=== PATIENT | female | born 1975 | race Hispanic/Latino ===

== ENCOUNTER 2016-04-21 22:12 | Emergency (ER) | payer OTHER ==
--- NOTE | 2016-04-21 22:42 | ERRECORD ---
[facility] EMERGENCY RECORD HPI TOOTHACHE (22:29 [facility]) CHIEF COMPLAINT: Patient presents for evaluation of toothache. HISTORIAN: History provided by patient, 41F presents with complaints of left upper tooth ache. States that she has had pain in the area for months, but it was better after antibiotics in early March. Has not seen a dentist due to only having Medicaid. Reports subjective facial swelling. Denies difficulty swallowing or decreased PO intake, denies fever. LOCATION: Symptoms are localized. TEETH: upper left canine (cuspid) (#11), upper left 1st premolar (bicuspid) (#12), Pain to with palpation percussion. QUALITY: Pain is sharp in nature, radiation to left face. TIME COURSE: Gradual onset of symptoms, Symptoms are worsening. ASSOCIATED WITH: Associated with facial swelling. EXACERBATED BY: Patient's condition exacerbated by chewing. ROS (22:31 [facility]) CONSTITUTIONAL: Negative constitutional review of systems, Historian denies chills, denies fever. ENT: dental pain, facial swelling. CARDIOVASCULAR: Negative cardiovascular review of systems, Historian denies chest pain, denies palpitations. RESPIRATORY: Negative respiratory review of systems, Historian denies cough, denies shortness of breath. GI: Negative gastrointestinal review of systems, Historian denies abdominal pain, denies constipation, denies diarrhea, denies nausea, denies vomiting. GENITOURINARY FEMALE: Negative genitourinary review of systems, Historian denies dysuria, denies frequency. SKIN: Negative skin review of systems, Historian denies rash, denies skin changes. NEUROLOGIC: Negative neurologic review of systems, Historian denies headache. HEMO/LYMPHATIC: Normal hematologic/lymphatic system review, Historian denies abnormal blood clotting. PAST MEDICAL HISTORY (22:22 [facility]) MEDICAL HISTORY: Flu vaccine up to date, Tetanus not up to date, Past medical history includes history of diabetes, Type II, Past medical history includes endocrine disease, hypothyroidism, Past medical history includes history of hyperlipidemia, history of hypertension. FEMALE SURGICAL HISTORY: Surgical history of cholecystectomy. PSYCHIATRIC HISTORY: No previous psychiatric history. SOCIAL HISTORY: Patient denies alcohol use, Patient denies drug use, Patient has no smoking history. &a-1R&a+25V*p+0X*x8042J*c202B*c15G*c2P*p-0X&a-25V&a+1R Name: Rachel Ramirez I : 1975 F41 MedRec: [id number] AcctNum: [id number] Prepared: Katherine Apr 21, 2016 22:45 by Interface Page 1 of 3 pMD [facility] EMERGENCY RECORD KNOWN ALLERGIES No Known Drug Allergies CURRENT MEDICATIONS metformin: Patient Dose: Oral 2 times a day.dose unknown. (22:28 [facility]) cholesterol: name/dose unknown. (22:29 [facility]) unknown insulin at bedtime: Patient Dose: 15 units Subcutaneous.Name of insulin unknown. (22:30 [facility]) thyroid: name unknown. (22:30 [facility]) VITAL SIGNS VITAL SIGNS: BP: 169/91, Pulse: 100, Resp: 18 (Non-Labored), Temp: 98.3 (Oral), Pain: 9, O2 sat: 98 on Room Air, Time: 04/21/2016 22:22. (22:22 [facility]) BP: 169/91, Pulse: 102, Resp: 18, Temp: 98.7, Pain: 7, O2 sat: 99 on RA, Time: 04/21/2016 22:35. (22:35 [facility]) PHYSICAL EXAM CONSTITUTIONAL: Vital signs reviewed, Patient afebrile, Pulse normal, Blood pressure normal, Respiratory rate normal, Patient appears non toxic, Patient appears pain free, Patient alert and oriented to person, place and time. (22:31 [facility]) ENT: Teeth with, dental caries, possible periapical abscess on #11. (22:32 [facility]) NECK: Neck exam normal, Neck exam included findings of normal range of motion, Trachea midline, no meningeal signs, no cervical adenopathy, no tenderness. (22:31 [facility]) RESPIRATORY CHEST: Respiratory and chest exam normal, Respiratory exam included findings of no respiratory distress, Breath sounds clear. (22:31 [facility]) CARDIOVASCULAR: Cardiovascular assessment normal, Cardiovascular exam included findings of heart rate regular rate and rhythm, Heart sounds normal. (22:31 [facility]) ABDOMEN FEMALE: Abdominal exam included findings of abdomen nontender, Bowel sounds normal, no distension, no mass, no pulsatile masses, no peritoneal signs, no rigidity, no guarding, no rebound, Rovsing's sign absent. (22:31 [facility]) BACK: Back exam normal, Back exam included findings of normal inspection, range of motion normal, no tenderness. (22:31 [facility]) NEURO: Neuro exam normal, Neuro exam findings include patient oriented to person, place and time, Speech normal, Gait normal. (22:31 [facility]) SKIN: Skin exam normal, Skin exam included findings of skin warm, dry, and normal in color, no rash. (22:31 [facility]) DOCTOR NOTES (22:32 [facility]) TEXT: Patient presents with findings consistent with &a-1R&a+25V*p+0X*y3330Q*c202B*c15G*c2P*p-0X&a-25V&a+1R Name: Rachel Ramirez I : 1975 F41 MedRec: [id number] AcctNum: [id number] Prepared: [facility] Apr 21, 2016 22:45 by Interface Page 2 of 3 pMD [facility] EMERGENCY RECORD periapical abscess. No signs of drainable abscess. multiple dental caries. No other concerning findings on exam. offered nerve block, which patient refused. Will start antibiotics, and gave a list of dentists that should accept her insurance. PATIENT STATUS: Patient has improved since arrival to emergency department. PATIENT PLAN: The patient will be discharged, The patient will follow up with primary care physician. PROBLEM LIST No recorded problems DIAGNOSIS (22:27 [facility]) FINAL: PRIMARY: Dental caries, ADDITIONAL: PERIAPICAL ABSCESS WITHOUT SINUS. PRESCRIPTION (22:27 [facility]) Pen-Vee K: TABLET : 500 mg : ORAL : Quantity: 1 Unit: tab(s) Route: ORAL Schedule: 4 times a day Dispense: 40 May substitute. Refills: No Refills . NOTES: No refills. DISPOSITION PATIENT: Disposition Type: Discharge, Disposition: *Discharge Home. (22:27 [facility]) Patient left the department. (22:41 [facility]) [place]: CHOB=VISHAL Schneider, Gissel BEASLEYC=MD Andrews Jason [facility]=VISHAL Garza, Lillie &a-1R&a+25V*p+0X*w5721J*c202B*c15G*c2P*p-0X&a-25V&a+1R Name: Rachel Ramirez I : 1975 F41 MedRec: [id number] AcctNum: [id number] Prepared: Katherine Apr 21, 2016 22:45 by Interface Page 3 of 3 pMD MTDD
--- NOTE | 2016-04-21 22:47 | PICIS ---
[facility] EMERGENCY RECORD TRIAGE (22:21 [facility]) PATIENT: NAME: Rachel Ramirez I, AGE: 41, GENDER: female, : Mon1975, TIME OF GREET: MonApr 21, 2016 22:13, PREFERRED LANGUAGE: Malaysian, ECODE BILLING MAP: [facility], Zip Code: [address], KG WEIGHT: 67.13, PHONE: , , , PERSON ID: [id number], PAYMENT: Unknown, PCP: DO BROWN KRISTEL. (22:21 [facility]) TRIAGE NOTES: Toothache X2 months. Put on abx last week but ran out. Pain getting worse per patient. (22:21 [facility]) COMPLAINT: Toothache. (22:21 [facility]) ADMISSION: URGENCY: 5 Fast [address], ADMISSION SOURCE: Home, TRANSPORT: Walk-in, BED: TRIAGE. (22:21 [facility]) TRIAGE SCREENING: Patient denies suicidal ideation, Patient denies presence of domestic violence. (22:22 [facility]) PROVIDERS: TRIAGE NURSE: Lillie Garza RN. (22:21 [facility]) VITAL SIGNS: BP 169/91, Pulse 100, Resp 18, (Non-Labored), Temp 98.3, (Oral), Pain 9, O2 Sat 98, on Room Air, Time 04/21/2016 22:22. (22:22 [facility]) KNOWN ALLERGIES No Known Drug Allergies CURRENT MEDICATIONS metformin: Patient Dose: Oral 2 times a day.dose unknown. (22:28 [facility]) cholesterol: name/dose unknown. (22:29 [facility]) unknown insulin at bedtime: Patient Dose: 15 units Subcutaneous.Name of insulin unknown. (22:30 [facility]) thyroid: name unknown. (22:30 [facility]) VITAL SIGNS VITAL SIGNS: BP: 169/91, Pulse: 100, Resp: 18 (Non-Labored), Temp: 98.3 (Oral), Pain: 9, O2 sat: 98 on Room Air, Time: 04/21/2016 22:22. (22:22 [facility]) BP: 169/91, Pulse: 102, Resp: 18, Temp: 98.7, Pain: 7, O2 sat: 99 on RA, Time: 04/21/2016 22:35. (22:35 [facility]) NURSING ASSESSMENT: DENTAL (22:31 [facility]) CONSTITUTIONAL: Complex assessment performed, Patient arrives ambulatory, Gait steady, History obtained from patient, Patient appears comfortable, Patient cooperative, Patient alert, Oriented to person, place and time, Skin warm, Skin dry, Skin normal in color, Mucous membranes pink, Mucous membranes moist, Patient is well-groomed, Patient complains of tooth pain. PAIN: aching pain, left upper front tooth, Onset of pain 02/19/2016 22:31, constant, Pain exacerbated by nothing, Nothing has been tried to alleviate the pain. DENTAL: Dental assessment findings include mouth normal, Teeth abnormal:, gums tender, no associated &a-1R&a+25V*p+0X*g5004W*c202B*c15G*c2P*p-0X&a-25V&a+1R Name: Rachel Ramirez I : 1975 F41 MedRec: [id number] AcctNum: [id number] Prepared: [facility] Apr 21, 2016 22:52 by Interface Page 1 of 4 pMD [facility] EMERGENCY RECORD malocclusion of jaw, no associated bleeding, no associated swelling, Notes: pt states she has not seen a dentist. pt educated on need to schedule appointment uri with pt verbal understanding. community dentist list provided to pt. SAFETY: Side rails up, Cart/Stretcher in lowest position, Call light within reach, Hospital ID band on. NURSING PROCEDURE: DISCHARGE NOTE (22:35 [facility]) DISCHARGE: Patient discharged to home, ambulating without assistance, driving self, unaccompanied, Patient requested and was provided an electronic copy of Discharge Instructions, Discharge instructions given to patient, Simple or moderate discharge teaching performed, by VISHAL OLIVO, Prescriptions given and instructions on side effects given, Name of prescription(s) given: [id number], Above person(s) verbalized understanding of discharge instructions and follow-up care. BELONGINGS: Belongings and valuables with patient at time of discharge include:, Belongings remain with patient. SAFETY: Side rails up, Cart/Stretcher in lowest position, Call light within reach, Hospital ID band on. VITAL SIGNS: BP: 169, / 91, Pulse: 102, Resp: 18, Temp: 98.7, Pain: 7, O2 sat: 99, on: RA. HPI TOOTHACHE (22:29 [facility]) CHIEF COMPLAINT: Patient presents for evaluation of toothache. HISTORIAN: History provided by patient, 41F presents with complaints of left upper tooth ache. States that she has had pain in the area for months, but it was better after antibiotics in early March. Has not seen a dentist due to only having Medicaid. Reports subjective facial swelling. Denies difficulty swallowing or decreased PO intake, denies fever. LOCATION: Symptoms are localized. TEETH: upper left canine (cuspid) (#11), upper left 1st premolar (bicuspid) (#12), Pain to with palpation percussion. QUALITY: Pain is sharp in nature, radiation to left face. TIME COURSE: Gradual onset of symptoms, Symptoms are worsening. ASSOCIATED WITH: Associated with facial swelling. EXACERBATED BY: Patient's condition exacerbated by chewing. ROS (22:31 [facility]) CONSTITUTIONAL: Negative constitutional review of systems, Historian denies chills, denies fever. ENT: dental pain, facial swelling. CARDIOVASCULAR: Negative cardiovascular review of systems, Historian denies chest pain, denies palpitations. RESPIRATORY: Negative respiratory review of systems, Historian denies cough, denies shortness of breath. GI: Negative gastrointestinal review of systems, Historian denies &a-1R&a+25V*p+0X*e2049D*c202B*c15G*c2P*p-0X&a-25V&a+1R Name: Rachel Ramirez I : 1975 F41 MedRec: [id number] AcctNum: [id number] Prepared: Katherine Apr 21, 2016 22:52 by Interface Page 2 of 4 pMD [facility] EMERGENCY RECORD abdominal pain, denies constipation, denies diarrhea, denies nausea, denies vomiting. GENITOURINARY FEMALE: Negative genitourinary review of systems, Historian denies dysuria, denies frequency. SKIN: Negative skin review of systems, Historian denies rash, denies skin changes. NEUROLOGIC: Negative neurologic review of systems, Historian denies headache. HEMO/LYMPHATIC: Normal hematologic/lymphatic system review, Historian denies abnormal blood clotting. PAST MEDICAL HISTORY (22:22 [facility]) MEDICAL HISTORY: Flu vaccine up to date, Tetanus not up to date, Past medical history includes history of diabetes, Type II, Past medical history includes endocrine disease, hypothyroidism, Past medical history includes history of hyperlipidemia, history of hypertension. FEMALE SURGICAL HISTORY: Surgical history of cholecystectomy. PSYCHIATRIC HISTORY: No previous psychiatric history. SOCIAL HISTORY: Patient denies alcohol use, Patient denies drug use, Patient has no smoking history. PHYSICAL EXAM CONSTITUTIONAL: Vital signs reviewed, Patient afebrile, Pulse normal, Blood pressure normal, Respiratory rate normal, Patient appears non toxic, Patient appears pain free, Patient alert and oriented to person, place and time. (22:31 [facility]) ENT: Teeth with, dental caries, possible periapical abscess on #11. (22:32 [facility]) NECK: Neck exam normal, Neck exam included findings of normal range of motion, Trachea midline, no meningeal signs, no cervical adenopathy, no tenderness. (22:31 [facility]) RESPIRATORY CHEST: Respiratory and chest exam normal, Respiratory exam included findings of no respiratory distress, Breath sounds clear. (22:31 [facility]) CARDIOVASCULAR: Cardiovascular assessment normal, Cardiovascular exam included findings of heart rate regular rate and rhythm, Heart sounds normal. (22:31 [facility]) ABDOMEN FEMALE: Abdominal exam included findings of abdomen nontender, Bowel sounds normal, no distension, no mass, no pulsatile masses, no peritoneal signs, no rigidity, no guarding, no rebound, Rovsing's sign absent. (22:31 [facility]) BACK: Back exam normal, Back exam included findings of normal inspection, range of motion normal, no tenderness. (22:31 [facility]) NEURO: Neuro exam normal, Neuro exam findings include patient oriented to person, place and time, Speech normal, Gait normal. (22:31 [facility]) SKIN: Skin exam normal, Skin exam included findings of skin warm, &a-1R&a+25V*p+0X*n4684R*c202B*c15G*c2P*p-0X&a-25V&a+1R Name: Rachel Ramirez I : 1975 F41 MedRec: [id number] AcctNum: [id number] Prepared: MonApr 21, 2016 22:52 by Interface Page 3 of 4 pMD [facility] EMERGENCY RECORD dry, and normal in color, no rash. (22:31 [facility]) EVENTS TRANSFER: Triage to Emergency Triage. (MonApr 21, 2016 22:21 [facility]) Emergency Triage to Emergency Room -02. (22:22 [facility]) Removed from Emergency Emergency Room -02. (22:41 [facility]) DOCTOR NOTES (22:32 [facility]) TEXT: Patient presents with findings consistent with periapical abscess. No signs of drainable abscess. multiple dental caries. No other concerning findings on exam. offered nerve block, which patient refused. Will start antibiotics, and gave a list of dentists that should accept her insurance. PATIENT STATUS: Patient has improved since arrival to emergency department. PATIENT PLAN: The patient will be discharged, The patient will follow up with primary care physician. PROBLEM LIST No recorded problems DIAGNOSIS (22:27 [facility]) FINAL: PRIMARY: Dental caries, ADDITIONAL: PERIAPICAL ABSCESS WITHOUT SINUS. DISPOSITION PATIENT: Disposition Type: Discharge, Disposition: *Discharge Home. (22:27 [facility]) Patient left the department. (22:41 [facility]) INSTRUCTION (22:28 [facility]) DISCHARGE: ABSCESS DENTAL. FOLLOWUP: DO BROWN KRISTEL, [facility], [address] [place] [id number], [phone]. SPECIAL: Start antibiotics. Call a dentist as soon as possible. Ibuprofen for pain. PRESCRIPTION (22:27 [facility]) Pen-Vee K: TABLET : 500 mg : ORAL : Quantity: 1 Unit: tab(s) Route: ORAL Schedule: 4 times a day Dispense: 40 May substitute. Refills: No Refills . NOTES: No refills. ADMIN (22:35 [facility]) DIGITAL SIGNATURE: MD Andrews Jason. [place]: CHOCasey=VISHAL Schneider, Gissel JJAC=MD Andrews Jason PGRI=VISHAL Garza, Lillie &a-1R&a+25V*p+0X*n2495F*c202B*c15G*c2P*p-0X&a-25V&a+1R Name: Rachel Ramirez I : 1975 F41 MedRec: [id number] AcctNum: [id number] Prepared: Katherine Apr 21, 2016 22:52 by Interface Page 4 of 4 pMD MTDD
== END 2016-04-21 22:35 | disposition home or self-care (01) ==
LOC: BURERS 22:12
DX: K04.7 Periapical abscess without sinus (principal); I10 Essential (primary) hypertension; K02.9 Dental caries, unspecified; E11.9 Type 2 diabetes mellitus without complications; E03.9 Hypothyroidism, unspecified; E78.5 Hyperlipidemia, unspecified; Z79.84 Long term (current) use of oral hypoglycemic drugs
CPT/HCPCS: 99282

== ENCOUNTER 2016-08-17 20:48 | Emergency (ER) | payer OTHER ==
[2016-08-17] MEDS ORDERED: Bicillin LA 1.2 MILLION UNITS/2 ML SYRINGE ONE (21:10)
[2016-08-17] MEDS ORDERED: Acetaminophen/Codeine 30-300mg Tablet ONE (21:13)
== END 2016-08-17 21:57 | disposition home or self-care (01) ==
LOC: BURERS 20:48
DX: K04.7 Periapical abscess without sinus (principal); I10 Essential (primary) hypertension; E11.9 Type 2 diabetes mellitus without complications; E03.9 Hypothyroidism, unspecified; E78.5 Hyperlipidemia, unspecified; F17.210 Nicotine dependence, cigarettes, uncomplicated; Z79.4 Long term (current) use of insulin; Z79.899 Other long term (current) drug therapy
CPT/HCPCS: 96372; J0561

== ENCOUNTER 2017-04-10 04:57 | Emergency (ER) | payer OTHER | END 2017-04-10 06:12 | disposition home or self-care (01) | LOC: BURERS 04:57 | DX: J06.9 Acute upper respiratory infection, unspecified (principal); E11.9 Type 2 diabetes mellitus without complications; I10 Essential (primary) hypertension; E03.9 Hypothyroidism, unspecified; E78.5 Hyperlipidemia, unspecified; F17.210 Nicotine dependence, cigarettes, uncomplicated; Z79.4 Long term (current) use of insulin | CPT/HCPCS: 36416; 87081; 87430; 99283 ==

== ENCOUNTER 2017-06-24 03:21 | Emergency (ER) | payer OTHER ==
[2017-06-24] MEDS ORDERED: Ibuprofen 200 MG TAB ONE (03:39)
== END 2017-06-24 03:45 | disposition home or self-care (01) ==
LOC: BURERS 03:21
DX: G44.209 Tension-type headache, unspecified, not intractable (principal); E11.9 Type 2 diabetes mellitus without complications; I10 Essential (primary) hypertension; E03.9 Hypothyroidism, unspecified; E78.5 Hyperlipidemia, unspecified; F17.210 Nicotine dependence, cigarettes, uncomplicated; Z79.4 Long term (current) use of insulin; Z79.899 Other long term (current) drug therapy
CPT/HCPCS: 99283

== ENCOUNTER 2017-09-29 01:35 | Emergency (ER) | payer OTHER ==
[2017-09-29] MEDS ORDERED: Ondansetron ODT 4 MG TAB ONE (02:17)
[2017-09-29 02:29] LABS: #Basophils 0.2 thou/uL (0.0-0.2); #Eosinphils 0.5 thou/uL (0.0-0.7); #Lymphocytes 4.7 thou/uL (1.20-3.40); #Monocytes 0.7 thou/uL (0.11-0.59); #Neutrophils 7.6 thou/uL (1.40-6.50); %Basophils 1.5 % (0.0-1.0); %Eosinophils 3.7 % (0.0-10.0); %Lymphocytes 34.3 % (21.0-51.0); %Monocytes 5.1 % (0.0-10.0); %Neutrophils 55.5 % (42.0-75.0); Hemoglobin 12.5 g/dL (12.0-16.0); Mean Corpuscular Volume 77.3 fL (78.0-98.0); Mean Platelet Volume 11.1 fL (7.4-10.4); Platelet Count 267 thou/uL (130-400); RBC Distribution Width 13.6 % (11.5-14.5); Red Blood Cell (RBC) Count 4.62 mill/uL (4.20-5.40); White Blood Cell (WBC) Count 13.7 thou/uL (4.8-10.8)
[2017-09-29 02:39] LABS: ALT (SGPT) 22 U/L (8-55); AST (SGOT) 14 U/L (5-34); Albumin 3.7 g/dL (3.5-5.0); Alkaline Phosphatase 116 U/L (40-150); Anion Gap 11 mmol/L (10-20); BUN (Urea Nitrogen) 9 mg/dL (7.0-18.7); Bilirubin, Total 0.5 mg/dL (0.2-1.2); Calc. Creatinine Clearance 0 mL/min (70-130); Calcium 8.6 mg/dL (7.8-10.44); Carbon Dioxide 25 mmol/L (22-29); Chloride 106 mmol/L (98-107); Estimated GFR-MDRD 83; Globulin 3.6 g/dL (2.4-3.5); Glucose 168 mg/dL (70-105); Potassium 3.7 mmol/L (3.5-5.1); Protein, Total 7.3 g/dL (6.0-8.3); Sodium 138 mmol/L (136-145)
[2017-09-29 02:44] LABS: Bilirubin Negative (Negative); Blood, Urine Negative (Negative); Clarity Clear (Clear); Glucose, Urine (Dipstick) Negative (Negative); Leukocyte Trace (Negative); Nitrite Negative (Negative); Protein, Urine (Dipstick) Negative (Neg-Trace); Urobilinogen 0.2 mg/dL (0.2-1.0)
[2017-09-29 02:45] LABS: Bacteria/HPF 1+ HPF (None Seen); RBC/HPF 0-3 HPF (0-3); Squamous Epithelial 0-3 HPF (0-3); Yeast-All Forms 1+ HPF (None Seen)
== END 2017-09-29 02:50 | disposition home or self-care (01) ==
LOC: BURERS 01:35
DX: E86.0 Dehydration (principal); E11.9 Type 2 diabetes mellitus without complications; E03.9 Hypothyroidism, unspecified; I10 Essential (primary) hypertension; E78.5 Hyperlipidemia, unspecified; F17.210 Nicotine dependence, cigarettes, uncomplicated; Z79.4 Long term (current) use of insulin; Z79.899 Other long term (current) drug therapy
CPT/HCPCS: 36416; 80053; 81003; 81015; 85025; 96374; Q0162

== ENCOUNTER 2018-04-12 17:56 | Emergency (ER) | payer OTHER ==
[2018-04-12] MEDS ORDERED: HYDROcodone/Acetaminophen 5/325 mg Tablet ONE (19:20)
[2018-04-12] MEDS ORDERED: AMOXicillin 250 MG CAP ONE (19:20)
== END 2018-04-12 19:24 | disposition home or self-care (01) ==
LOC: BURERS 17:56
DX: K02.9 Dental caries, unspecified (principal); E11.9 Type 2 diabetes mellitus without complications; F17.210 Nicotine dependence, cigarettes, uncomplicated; Z79.4 Long term (current) use of insulin
CPT/HCPCS: 99282

== ENCOUNTER 2018-06-27 11:17 | Emergency (ER) | payer OTHER ==
[2018-06-27 12:26] LABS: #Basophils 0.2 thou/uL (0.0-0.2); #Eosinphils 0.5 thou/uL (0.0-0.7); #Lymphocytes 3.9 thou/uL (1.20-3.40); #Monocytes 0.6 thou/uL (0.11-0.59); #Neutrophils 7.4 thou/uL (1.40-6.50); %Basophils 1.4 % (0.0-1.0); %Lymphocytes 31.3 % (21.0-51.0); %Monocytes 4.6 % (0.0-10.0); %Neutrophils 58.6 % (42.0-75.0); Hemoglobin 11.7 g/dL (12.0-16.0); Mean Corpuscular Hemoglobin 24.5 pg (27.0-31.0); Mean Corpuscular Volume 81.6 fL (78.0-98.0); Mean Platelet Volume 11.2 fL (7.4-10.4); Platelet Count 292 thou/uL (130-400); RBC Distribution Width 15.4 % (11.5-14.5); Red Blood Cell (RBC) Count 4.76 mill/uL (4.20-5.40); White Blood Cell (WBC) Count 12.6 thou/uL (4.8-10.8)
[2018-06-27 12:33] LABS: ALT (SGPT) 22 U/L (8-55); AST (SGOT) 15 U/L (5-34); Albumin 4.4 g/dL (3.5-5.0); Alkaline Phosphatase 147 U/L (40-150); Anion Gap 13 mmol/L (10-20); BUN (Urea Nitrogen) 7 mg/dL (7.0-18.7); Bilirubin, Total 0.8 mg/dL (0.2-1.2); Calc. Creatinine Clearance 0 mL/min (70-130); Carbon Dioxide 24 mmol/L (22-29); Chloride 103 mmol/L (98-107); Estimated GFR-MDRD 72; Globulin 4.1 g/dL (2.4-3.5); Glucose 251 mg/dL (70-105); Potassium 3.9 mmol/L (3.5-5.1); Protein, Total 8.5 g/dL (6.0-8.3); Sodium 136 mmol/L (136-145)
[2018-06-27 12:44] LABS: Anisocytosis SLIGHT = 6-15 cells (100X) (0-5/hpf); MDiff Complete? YES; Platelet Morphology Comment Appears Adequate
[2018-06-27 12:51] LABS: Bilirubin Negative (Negative); Clarity Cloudy (Clear); Glucose, Urine (Dipstick) >=1000 mg/dL (Negative); Leukocyte Small (Negative); Nitrite Positive (Negative); Protein, Urine (Dipstick) Negative (Neg-Trace); Urobilinogen 0.2 mg/dL (0.2-1.0)
[2018-06-27 12:52] LABS: Bacteria/HPF 4+ HPF (None Seen); Blood, Urine Negative (Negative); Crystals/HPF None Seen HPF (Negative); Hyaline Casts/LPF NONE SEEN LPF (0-3 Hyaline); Other Casts/LPF None Seen LPF (0-3 Hyaline); Oval Fat Bodies/HPF None Seen HPF (None Seen); RBC/HPF None Seen HPF (0-3); Renal Epithelial None Seen HPF (0-3); Sperm/HPF None Seen HPF (None Seen); Transitional Epithelial NONE SEEN HPF (0-3); Trichomonas/HPF None Seen HPF (None Seen); Yeast-All Forms None Seen HPF (None Seen)
[2018-06-27] MEDS ORDERED: Sulfameth/Trimethoprim DS 800-160mg TAB ONE (13:04)
--- NOTE | 2018-06-27 18:50 | RAD ---
PORTABLE CHEST: 06/27/18 An AP portable film at 1214 shows a normal sized heart and clear lungs. No infiltrate or effusion was seen. There is no edema or congestion. The mediastinum appears normal. IMPRESSION: No acute thoracic finding. POS: HOME
== END 2018-06-27 13:07 | disposition home or self-care (01) ==
LOC: BURERS 11:17
DX: N30.00 Acute cystitis without hematuria (principal); R60.9 Edema, unspecified; I10 Essential (primary) hypertension; Z91.11 Patient's noncompliance with dietary regimen; E11.9 Type 2 diabetes mellitus without complications; F17.210 Nicotine dependence, cigarettes, uncomplicated; Z79.4 Long term (current) use of insulin
CPT/HCPCS: 36415; 71045; 80053; 81003; 81015; 83880; 84443; 84484; 85025; 93005; 94760

== ENCOUNTER 2018-07-01 21:23 | Emergency (ER) | payer OTHER | END 2018-07-01 21:39 | disposition home or self-care (01) | LOC: BURERS 21:23 | DX: J11.1 Influenza due to unidentified influenza virus with other respiratory manifestations (principal); E11.9 Type 2 diabetes mellitus without complications; Z79.4 Long term (current) use of insulin; I10 Essential (primary) hypertension; F17.210 Nicotine dependence, cigarettes, uncomplicated | CPT/HCPCS: 99283 ==

== ENCOUNTER 2018-08-17 20:24 | Emergency (ER) | payer OTHER ==
[2018-08-17] MEDS ORDERED: Benzonatate 100 MG CAP ONE ×2 (21:07→21:08)
== END 2018-08-17 21:11 | disposition home or self-care (01) ==
LOC: BURERS 20:24
DX: R42 Dizziness and giddiness (principal); E11.9 Type 2 diabetes mellitus without complications; E03.9 Hypothyroidism, unspecified; I10 Essential (primary) hypertension; M06.9 Rheumatoid arthritis, unspecified; F41.9 Anxiety disorder, unspecified; F31.9 Bipolar disorder, unspecified; F17.210 Nicotine dependence, cigarettes, uncomplicated
CPT/HCPCS: 99283